=== PATIENT | female | born 1970 | race Two or more races ===

== ENCOUNTER 2016-10-18 05:13 | Emergency (ER) | payer SELFPAY ==
[~2016-10-18] VITALS: Ht 160 cm; Wt 59.0 kg
[2016-10-18 06:23] VITALS: BP 124/87
[2016-10-18] MEDS ORDERED: PHENAZOPYRIDINE HCL 100 MG TAB PO ONE (07:00)
[2016-10-18 07:08] LABS: Urine RBC 35686 /hpf (0 - 4)
[2016-10-18] MEDS ORDERED: cefTRIAXone SOD 1,000 MG VL IM ONE (07:15)
[2016-10-18 07:17] LABS: Urine Color RED (Yellow)
[2016-10-18 08:31] LABS: CONDITION Y; Hematocrit 41.4 % (36.0-46.0); White Blood Cell 11.7 10^3/uL (4.4-10.8)
[2016-10-18 08:36] LABS: Basophils # (auto) 0 uL; Basophils % (auto) 0.2 % (0.0-2.0); Eosinophils # (auto) 0.1 uL; Eosinophils % (auto) 0.7 % (0.0-7.0); Lymphocytes # (auto) 1.5 uL; Lymphocytes % (auto) 12.7 % (10.0-50.0); Mean Corpuscular Hemoglobin 28.5 pg (28.0-32.0); Mean Corpuscular Hgb Conc. 33.7 g/dL (32.0-36.0); Mean Corpuscular Volume 84.4 fL (80.0-100.0); Mean Platelet Volume 10.2 fL (7.4-10.4); Monocytes % (auto) 8.3 % (0.0-12.0); Neutrophils # (auto) 9.2 uL; Neutrophils % (auto) 78.1 % (37.0-80.0); Platelet Count (auto) 237 10^3/uL (140-450); Red Cell Distribution Width 13.6 % (11.6-16.0)
[2016-10-18 08:51] LABS: Albumin 3.8 g/dL (3.4-5.0); BUN/Creatinine Ratio 23.4; Calcium 8.6 mg/dL (8.5-10.1); Potassium 4.2 mmol/L (3.5-5.1)
[2016-10-18 08:53] LABS: Bilirubin, Total 0.4 mg/dL (0.2-1.0); Total Protein 8.4 g/dL (6.4-8.2)
== END 2016-10-18 09:11 | disposition home or self-care (01) ==
LOC: ER 05:13
DX: N39.0 Urinary tract infection, site not specified (principal); Z88.1 Allergy status to other antibiotic agents
CPT/HCPCS: 36415; 74176; 80053; 81001; 81002; 81025; 85025; 96372; 99285; J0696

== ENCOUNTER → 2019-08-22 | Emergency (ER) | payer MEDICAID ==
[~2019-08-22] VITALS: Ht 160 cm; Wt 56.7 kg
[2019-08-22 05:45] LABS: Basophils # (auto) 0.1 10 ^3/uL (0-0.2); Basophils % (auto) 0.8 % (0.0-2.0); Eosinophils # (auto) 0.1 10 ^3/uL (0-0.8); Eosinophils % (auto) 1.8 % (0.0-7.0); Hematocrit 40.9 % (36.0-46.0); Hemoglobin 13.7 g/dL (12.2-16.2); Lymphocytes # (auto) 1.5 10 ^3/uL (0.4-5.4); Mean Corpuscular Hemoglobin 28.9 pg (28.0-32.0); Mean Corpuscular Hgb Conc. 33.6 g/dL (32.0-36.0); Mean Corpuscular Volume 86.1 fL (80.0-100.0); Monocytes # (auto) 0.7 10 ^3/uL (0-1.3); Monocytes % (auto) 10.8 % (0.0-12.0); Neutrophils % (auto) 62.6 % (37.0-80.0); Nucleated Red Blood Cells % 0.1 %; Platelet Count (auto) 236 10^3/uL (140-450); Red Blood Cells 4.75 10^6/uL (4.0-5.20); Red Cell Distribution Width 13.4 % (11.8-14.3); White Blood Cell 6.4 10^3/uL (4.4-10.8)
[2019-08-22 06:06] LABS: Albumin 3.4 g/dL (3.4-5.0); Anion Gap 4 (5-15); Blood Urea Nitrogen 21 mg/dL (7-18); Calcium 8.3 mg/dL (8.5-10.1); Carbon Dioxide 27 mmol/L (21-32); Chloride 106 mmol/L (98-107); Glucose 93 mg/dL (74-106); Magnesium 2.5 mg/dL (1.6-2.6); Potassium 3.6 mmol/L (3.5-5.1); Sodium 137 mmol/L (136-145)
[2019-08-22 06:10] LABS: Alanine Aminotransferase 16 U/L (13-56); Alkaline Phosphatase 51 U/L (45-117); Aspartate Aminotransferase 14 U/L (15-37); BUN/Creatinine Ratio 26.3; Bilirubin, Total 0.2 mg/dL (0.2-1.0); GFR African American 97 mL/min; GFR Non-African American 80 mL/min; Total Protein 7.2 g/dL (6.4-8.2)
[2019-08-22 06:15] LABS: INR 1.01 (0.9-1.15); Partial Thromboplastin Time 27.5 sec (23.64-32.05)
[2019-08-22 06:24] LABS: Urine Bacteria FEW /hpf (None Seen); Urine Blood TRACE /uL (Negative); Urine Mucus FEW (None Seen); Urine Specific Gravity 1.014 (1.001-1.035); Urine WBC 1 /hpf (0 - 5)
[2019-08-22 08:12] VITALS: BP 126/73
== END | disposition home or self-care (01) ==
LOC: EDUNIT# 04:14 → EDBD 04:18 → ER 04:32
DX: R07.89 Other chest pain (principal); Z88.1 Allergy status to other antibiotic agents
CPT/HCPCS: 36415; 71045; 80053; 81001; 83735; 83880; 84443; 84484; 85025; 85610; 85730; 93005

== ENCOUNTER 2024-04-11 23:16 | Emergency (ER) | payer OTHER ==
[~2024-04-11] VITALS: Ht 160 cm; Wt 64.4 kg
[~2024-04-11 23:16] MED LIST: IBUP-1454 PO; METH-1181 PO
--- NOTE | 2024-04-11 23:32 | ED.PDOC ---
History of Present Illness HPI Comments 54-year-old female presents with a chief complaint of abdominal pain, nausea, vomiting, and diarrhea x 45 minutes. Patient reports that her pain is localized to her epigastric region, non-radiating, describes as aching. Patient reports that all of her symptoms began today around 0900, but the abdominal pain began x 45 minutes ago. Patient denies any rectal bleeding, hemoptysis, or hematemesis. No other symptoms or modifying factors present at this time. Chief Complaint: Abdominal Pain Time Seen by MD: 23:26 Primary Care Provider: UNKNOWN Reviewed Notes: Medications, Allergies Allergies: Coded Allergies: Erythromycin (Verified Allergy, 03/23/12) Home Meds Active Scripts Loperamide Hcl (Imodium) 2 Mg Cp, 2 MG PO Q4HP PRN for 5 Days, #30 CAP Prov:ERIC KYLE MD 04/12/24 Ondansetron HCl (Ondansetron Hydrochloride) 8 Mg Tab, 8 MG PO Q6HP PRN for 10 Days, #40 TAB Prov:ERIC KYLE MD 04/12/24 Famotidine (PEPCID TABLET) 20 Mg Tb, 1 TAB PO BID PRN for 30 Days, #60 TAB 5 Refills Prov:ERIC KYLE MD 04/12/24 Methocarbamol (Methocarbamol) 500 Mg Tab, 500 MG PO QHSP PRN, #20 TAB Prov:FLORESITA ALY 02/20/22 Ibuprofen (Ibuprofen) 600 Mg Tab, 600 MG PO TID, #30 TAB Prov:FLORESITA ALY 02/20/22 Information Source: Patient Mode of Arrival: Ambulatory Severity: Moderate Timing: Minutes Duration: Since onset Prehospital treatment: None Past Medical History PAST MEDICAL HISTORY: Denies Surgical History: Denies all surgeries [employer]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 [employer] History Family History Family History: Family hx of DM Social History Smoker: Non-Smoker Alcohol: Denies ETOH Use Drugs: Denies Drug Use Lives In: Home Constitutional: denies: chills, diaphoresis, fatigue, fever, malaise, sweats, weakness, others EENTM: denies: blurred vision, double vision, ear bleeding, ear discharge, ear drainage, ear pain, ear ringing, eye pain, eye redness, hearing loss, mouth pain, mouth swelling, nasal discharge, nose bleeding, nose congestion, nose pain, photophobia, tearing, throat pain, throat swelling, voice changes, others Respiratory: denies: cough, hemoptysis, orthopnea, SOB at rest, shortness of breath, SOB with excertion, stridor, wheezing, others Cardiovascular: denies: chest pain, dizzy spells, diaphoresis, Dyspnea on exertion, edema, irregular heart beat, left arm pain, lightheadedness, palpitations, PND, syncope, others Gastrointestinal: reports: abdominal pain, diarrhea, nausea, vomiting; denies: abdomen distended, blood streaked bowels, constipated, dysphagia, difficulty swallowing, hematemesis, melena, poor appetite, poor fluid intake, rectal bleeding, rectal pain, others Genitourinary: denies: abnormal vagina bleeding, burning, dyspareunia, dysuria, flank pain, frequency, hematuria, incontinence, pain, , vagina discharge, urgency, others Neurological: denies: dizziness, fainting, headache, left sided numbness, left sided weakness, numbness, paresthesia, pre-existing deficit, right sided numbness, right sided weakness, seizure, speech problems, tingling, tremors, weakness, others Musculoskeletal: denies: back pain, gout, joint pain, joint swelling, muscle pain, muscle stiffness, neck pain, others Integumetry: denies: bruises, change in color, change in hair/nails, dryness, laceration, lesions, lumps, rash, wounds, others Allergic/Immunocompromised: denies: Difficulty Healing, Frequent Infections, Hives, Itching, others Hematologic/Lymphatic: denies: anemia, blood clots, easy bleeding, easy bruising, swollen glands, others Endocrine: denies: excessive hunger, excessive sweating, excessive thirst, excessive urination, flushing, intolerance to cold, intolerance to heat, unexplained weight gain, unexplained weight loss, others Psychiatric: denies: anxiety, bipolar disorder, depression, hopeless, panic disorder, schizophrenia, sleepless, suicidal, others All Other Systems: Reviewed and Negative Physical Exam General Appearance: No Apparent Distress, Normal HEENT: Normal ENT Inspection, Pharynx Normal, TMs Normal Neck: Full Range of Motion, Non-Tender, Normal, Normal Inspection Respiratory: Chest Non-Tender, Lungs Clear, No Accessory Muscle Use, No Respiratory Distress, Normal Breath Sounds Cardiovascular: No Edema, No JVD, No Murmur, No Gallop, Normal Peripheral Pulses, Regular Rate/Rhythm Breast Exam: Deferred Gastrointestinal: No Organomegaly, Non Tender, No Pulsatile Mass, Normal Bowel Sounds, Soft Genitalia: Deferred Pelvic: Deferred Rectal: Deferred Extremities: No calf tenderness, Normal capillary refill, Normal inspection, Normal range of motion, Non-tender, No pedal edema Musculoskeletal : Apperance: Normal Neurologic: Alert, reimbursement auditor II-XII nml as Tested, No Motor Deficits, Normal Affect, Normal Mood, No Sensory Deficits Cerebellar Function: Normal Reflexes: Normal Skin: Dry, Normal Color, Warm Lymphatic: No Adenopathy Was a procedure done? Was a procedure done?: No Differential Dx Considerations may include: Differential diagnosis includes but is not limited to: appendicitis, diverticulitis, colitis, urinary tract infection, ureteral colic / stone, bowel obstruction, and others X-Ray, Labs, Meds, VS Vital Signs Date Time Temp Pulse Resp B/P (MAP) Pulse Ox O2 Delivery O2 Flow Rate FiO2 04/12/24 00:19 99.7 102 18 145/87 (106) 95 99.7 04/12/24 00:19 102 18 95 Room Air* 0 21 04/11/24 23:26 91 04/11/24 23:22 99.7 102 18 145/87 (106) 95 Lab Test 04/12/24 00:09 Range/Units White Blood Count 15.8 H 4.4-10.8 10^3/uL Red Blood Count 5.47 H 4.0-5.20 10^6/uL Hemoglobin 15.3 12.2-16.2 g/dL Hematocrit 46.9 H 36.0-46.0 % Mean Corpuscular Volume 85.7 80.0-100.0 fL Mean Corpuscular Hemoglobin 28.0 28.0-32.0 pg Mean Corpuscular Hemoglobin Concent 32.7 32.0-36.0 g/dL Red Cell Distribution Width 13.9 11.8-14.3 % Platelet Count 364 140-450 10^3/uL Mean Platelet Volume 8.7 6.9-10.8 fL Neutrophils (%) (Auto) 87.0 H 37.0-80.0 % Lymphocytes (%) (Auto) 4.0 L 10.0-50.0 % Monocytes (%) (Auto) 7.8 0.0-12.0 % Eosinophils (%) (Auto) 0.6 0.0-7.0 % Basophils (%) (Auto) 0.6 0.0-2.0 % Neutrophils # (Auto) 13.7 H 1.6-8.6 10 ^3/uL Lymphocytes # (Auto) 0.6 0.4-5.4 10 ^3/uL Monocytes # (Auto) 1.2 0-1.3 10 ^3/uL Eosinophils # (Auto) 0.1 0-0.8 10 ^3/uL Basophils # (Auto) 0.1 0-0.2 10 ^3/uL Nucleated Red Blood Cells 0.1 % Sodium Level 139 136-145 mmol/L Potassium Level 4.0 3.5-5.1 mmol/L Chloride Level 107 98-107 mmol/L Carbon Dioxide Level 24 20-31 mmol/L Anion Gap 8 5-15 Blood Urea Nitrogen 16 9-23 mg/dL Creatinine 0.80 0.550-1.02 mg/dL Glomerular Filtration Rate Calc 86 >90 mL/min BUN/Creatinine Ratio 20.0 10.0-20.0 Serum Glucose 116 H 74-106 mg/dL Calcium Level 10.5 H 8.7-10.4 mg/dL Total Bilirubin 0.5 0.2-1.0 mg/dL Aspartate Amino Transferase (AST) 14 13-40 U/L Alanine Aminotransferase (ALT) 15 7-40 U/L Alkaline Phosphatase 86 46-116 U/L Total Protein 8.7 H 5.7-8.2 g/dL Albumin 4.8 3.2-4.8 g/dL Lipase 38 12-53 U/L Current Medications Medications (Trade) Dose Ordered Sig/Dion Route Start Time Stop Time Status Last Admin Ondansetron HCl (Zofran Po) 8 mg ONCE ONCE PO 04/11/24 23:30 04/11/24 23:31 DC 04/12/24 00:17 Al Hydrox/Mg Hydrox/Simethicone (Maalox Plus) 30 ml ONCE ONCE PO 04/11/24 23:30 04/11/24 23:31 DC 04/12/24 00:17 Belladonna Alkaloids/ Phenobarbital ( Elixir) 5 ml ONCE ONCE PO 04/11/24 23:30 04/11/24 23:31 DC 04/12/24 00:17 Famotidine (Pepcid Tablet) 20 mg ONCE ONCE PO 04/11/24 23:30 04/11/24 23:31 DC 04/12/24 00:17 Loperamide HCl (Imodium Capsule) 4 mg ONCE ONCE PO 04/11/24 23:30 04/11/24 23:31 DC 04/12/24 00:17 Time of 1ST Reevaluation: 23:56 Reevaluation 1ST: Unchanged Time of 2ND Reevaluation: 00:30 (Patient is and states that she is much improved, denies pain, abdomen is nontender. Patient is taking fluids by mouth.) Reevaluation 2ND: Improved Patient Education/Counseling: Diagnosis, Treatment, Prognosis Family Education/Counseling: No Family Present Departure 1 Departure Time of Disposition: 00:30 Impression: Primary Impression: Nausea vomiting and diarrhea Additional Impression: Epigastric pain Disposition: HOME / SELF CARE / HOMELESS Condition: Stable e-Prescriptions Loperamide Hcl (Imodium) 2 Mg Cp 2 MG PO Q4HP PRN for 5 Days, #30 CAP Prov: ERIC KYLE MD 04/12/24 Ondansetron HCl (Ondansetron Hydrochloride) 8 Mg Tab 8 MG PO Q6HP PRN for 10 Days, #40 TAB Prov: ERIC KYLE MD 04/12/24 Famotidine (PEPCID TABLET) 20 Mg Tb 1 TAB PO BID PRN for 30 Days, #60 TAB 5 Refills Prov: ERIC KYLE MD 04/12/24 Discharged With: Self Critical Care Note Critical Care Time?: No Stability Stability form required: No I personally scribed for ERIC KYLE MD ([email or web address]) on 04/11/24 at 23:32. E lectronically submitted by Jani Wayne [email or web address]). ERIC KYLE MD Apr 11, 2024 23:32
--- NOTE | 2024-04-11 23:32 | ECG ---
[facility] [place] Test Date: 2024-04-11 Test Time: 23:26:01 Pat Name: LUKE THURMAN Department: ER Room: Gender: F Dirt Shoveler: DIEGO : 1970 Requested By: ERIC KYLE Order Number: [id number] Reading MD: Debra Austin Measurements Intervals [place] Rate: 91 P: 48 MN: 146 QRS: 31 QRSD: 103 T: 27 QT: 345 QTc: 425 Interpretive Statements Sinus rhythm RSR' in V1 or V2, right VCD or RVH Borderline T abnormalities, anterior leads Electronically Signed On 04-12-2024 8:39:54 PST by Debra Austin Please click the below link to view image of tracing.
[2024-04-12] MEDS: FAMOTIDINE 20 MG TAB PO ONE (00:17)
[2024-04-12] MEDS: MAALOX PLUS or MAALOX 30 ML PO ONE (00:17)
[2024-04-12] MEDS: ONDANSETRON ODT 4 MG TAB PO ONE (00:17)
[2024-04-12] MEDS: LOPERAMIDE HCL 2 MG CAP/TAB PO ONE (00:17)
[2024-04-12] MEDS: DONNATAL 5ml ORAL Elix (BELLADONNA ALK-PHENOBARB) PO ONE (00:17)
[2024-04-12 00:19] VITALS: BP 145/87; PULSE 102; RESP 18; TEMP 99.7; O2SAT 95
[2024-04-12 00:20] LABS: Basophils # (auto) 0.1 10 ^3/uL (0-0.2); Basophils % (auto) 0.6 % (0.0-2.0); Eosinophils # (auto) 0.1 10 ^3/uL (0-0.8); Eosinophils % (auto) 0.6 % (0.0-7.0); Hematocrit 46.9 % (36.0-46.0); Hemoglobin 15.3 g/dL (12.2-16.2); Lymphocytes # (auto) 0.6 10 ^3/uL (0.4-5.4); Mean Corpuscular Hgb Conc. 32.7 g/dL (32.0-36.0); Mean Corpuscular Volume 85.7 fL (80.0-100.0); Monocytes # (auto) 1.2 10 ^3/uL (0-1.3); Monocytes % (auto) 7.8 % (0.0-12.0); Neutrophils # (auto) 13.7 10 ^3/uL (1.6-8.6); Nucleated Red Blood Cells % 0.1 %; Platelet Count (auto) 364 10^3/uL (140-450); Red Blood Cells 5.47 10^6/uL (4.0-5.20); Red Cell Distribution Width 13.9 % (11.8-14.3); White Blood Cell 15.8 10^3/uL (4.4-10.8)
[2024-04-12 00:40] LABS: Alanine Aminotransferase 15 U/L (7-40); Albumin 4.8 g/dL (3.2-4.8); Alkaline Phosphatase 86 U/L (46-116); Anion Gap 8 (5-15); Aspartate Aminotransferase 14 U/L (13-40); Bilirubin, Total 0.5 mg/dL (0.2-1.0); Blood Urea Nitrogen 16 mg/dL (9-23); Calcium 10.5 mg/dL (8.7-10.4); Carbon Dioxide 24 mmol/L (20-31); Chloride 107 mmol/L (98-107); Glucose 116 mg/dL (74-106); Lipase 38 U/L (12-53); Sodium 139 mmol/L (136-145)
[2024-04-12 00:44] LABS: Total Protein 8.7 g/dL (5.7-8.2)
[2024-04-12] MEDS ORDERED: ONDA-180 PO (01:02)
[2024-04-12] MEDS ORDERED: FAMO20TA10 PO (01:02)
[2024-04-12] MEDS ORDERED: LOPE2CAP16 PO (01:02)
== END 2024-04-12 01:36 | disposition home or self-care (01) ==
LOC: ER 23:16
DX: R10.13 Epigastric pain (principal); R11.2 Nausea with vomiting, unspecified; R19.7 Diarrhea, unspecified; Z79.1 Long term (current) use of non-steroidal anti-inflammatories (NSAID); Z79.899 Other long term (current) drug therapy; Z88.1 Allergy status to other antibiotic agents
CPT/HCPCS: 36415; 80053; 83690; 85025; 93005; 99284; Q0162